=== PATIENT | male | born 1965 | race Caucasian/White ===

== ENCOUNTER 2017-07-27 00:35 | Emergency (ER) | payer OTHER ==
[~2017-07-27] VITALS: Ht 172.7 cm; Wt 83.9 kg
--- NOTE | 2017-07-27 00:40 | NUR ---
BALTAZAR NESS AT BEDSIDE FOR MSE.
[2017-07-27] MEDS ORDERED: IV NORMAL SALINE 1000 ML BAG IV ONE (00:45)
[2017-07-27] MEDS ORDERED: ACETAMINOPHEN ES 500 MG TABLET PO ONE (00:45)
[2017-07-27] MEDS ORDERED: KETOROLAC TROMETHAMINE 30 MG INJ IVP ONE (00:45)
[2017-07-27] MEDS ORDERED: ASPI-1169 PO (00:57)
--- NOTE | 2017-07-27 01:05 | NUR ---
PT STATES HE HAS BEEN "FEELING SICK" THE PAST 2 DAYS, C/O GENERALIZED BODY ACHES, LACK OF APPETITE, AND POOR FLUID INTAKE. STATES THAT HE HAS FEELING OF PALPITATIONS. PLACED ON MONITOR AND PULSE OX PER ORDER. EKG COMPLETED.
[2017-07-27] MEDS ORDERED: KETOROLAC TROMETHAMINE 30 MG INJ ONE (01:10)
[2017-07-27] MEDS ORDERED: ACETAMINOPHEN ES 500 MG TABLET ONE (01:10)
[2017-07-27 01:20] LABS: CREATININE 1.2 mg/dL (0.6-1.3); POTASSIUM 3.5 mmol/L (3.5-5.1)
[2017-07-27 01:21] LABS: BASOPHILS % (AUTO) 0.1 % (0.0-2.0); EOSINOPHILS % (AUTO) 0.3 % (0.0-7.0); HEMATOCRIT 46.6 % (36.7-47.1); HEMOGLOBIN 16.5 g/dL (12.5-16.3); LYMPHOCYTES # (AUTO) 1.1 K/uL (20.0-40.0); LYMPHOCYTES % (AUTO) 7.7 % (20.5-51.5); MEAN CORPUSCULAR HEMOGLOBIN 30.7 uug (23.8-33.4); MEAN CORPUSCULAR HGB CONC 35 g/dL (32.5-36.3); MEAN CORPUSCULAR VOLUME 86.9 fL (73.0-96.2); MONOCYTES # (AUTO) 0.7 K/uL (2.0-10.0); MONOCYTES % (AUTO) 4.5 % (0.0-11.0); NEUTROPHILS # (AUTO) 12.7 K/uL (1.8-8.9); NEUTROPHILS % (AUTO) 87.4 % (38.5-71.5); PLATELET COUNT (AUTO) 261 K/uL (152-348); RED BLOOD CELL COUNT(AUTO) 5.36 MIL/uL (4.06-5.63); WHITE BLOOD COUNT (AUTO) 14.5 K/uL (3.6-10.2)
[2017-07-27 01:26] LABS: BILIRUBIN,DIRECT 0.1 mg/dL (0.0-0.2); TOTAL PROTEIN, SERUM 7.7 g/dL (6.4-8.2)
--- NOTE | 2017-07-27 01:41 | NUR ---
XRAY AT PT BEDSIDE.
--- NOTE | 2017-07-27 02:12 | NUR ---
Patient discharged to home in stable conditon. Written and verbal after care instructions given. Patient verbalizes understanding of instructions. IV removed w/ catheter intact, no bleeding noted at site. Pt ambulated from ER w/ steady gait. Pt took all personal belongings.
[2017-07-27 02:15] VITALS: BP 124/76
== END 2017-07-27 02:16 | disposition home or self-care (01) ==
LOC: ER 00:35
DX: J11.1 Influenza due to unidentified influenza virus with other respiratory manifestations (principal); Z79.82 Long term (current) use of aspirin; Z88.5 Allergy status to narcotic agent
CPT/HCPCS: 36415; 70030-TC; 71045; 85025; 87400; 93005; A4663; A9150; J1885; J7030

== ENCOUNTER 2018-11-24 23:33 | Inpatient (IN) | payer OTHER ==
[~2018-11-24] VITALS: Ht 172.7 cm; Wt 74.9 kg
[~2018-11-24 23:33] MED LIST: ASPI-1169 PO; ATOR20TA PO; METF-440 PO
[2018-11-25] MEDS ORDERED: IV NORMAL SALINE 1000 ML BAG IV ONE (00:45)
[2018-11-25] MEDS ORDERED: DILTIAZEM HCL 25 MG IV IV ONE (00:45)
[2018-11-25 00:55] LABS: BASOPHILS # (AUTO) 0.1 K/uL (0.0-8.0); BASOPHILS % (AUTO) 0.9 % (0.0-2.0); EOSINOPHILS # (AUTO) 0.2 K/uL (0.0-0.7); HEMOGLOBIN 14.6 g/dL (12.5-16.3); LYMPHOCYTES # (AUTO) 4.4 K/uL (20.0-40.0); MEAN CORPUSCULAR HGB CONC 35 g/dL (32.5-36.3); MEAN CORPUSCULAR VOLUME 86.6 fL (73.0-96.2); MONOCYTES # (AUTO) 0.8 K/uL (2.0-10.0); MONOCYTES % (AUTO) 7.2 % (0.0-11.0); NEUTROPHILS # (AUTO) 5.9 K/uL (1.8-8.9); NEUTROPHILS % (AUTO) 51.9 % (38.5-71.5); PLATELET COUNT (AUTO) 246 K/uL (152-348); RED BLOOD CELL COUNT(AUTO) 4.85 MIL/uL (4.06-5.63); WHITE BLOOD COUNT (AUTO) 11.5 K/uL (3.6-10.2)
[2018-11-25] MEDS ORDERED: DILTIAZEM HCL 25 MG IV ONE (00:58)
[2018-11-25 01:04] LABS: CREATININE 1.1 mg/dL (0.6-1.3); POTASSIUM 3.4 mmol/L (3.5-5.1)
[2018-11-25] MEDS ORDERED: AMIODARONE HCL IV 150 MG in IV DEXTROSE 5% 100 ML IV ONE (01:15)
[2018-11-25 01:16] LABS: BILIRUBIN,DIRECT 0.1 mg/dL (0.0-0.2); BILIRUBIN,TOTAL 0.5 mg/dL (0.2-1.0); TOTAL PROTEIN, SERUM 7.1 g/dL (6.4-8.2)
[2018-11-25] MEDS ORDERED: AMIODARONE HCL 150 MG/3 ML VIAL IV ONE (01:19)
[2018-11-25] MEDS ORDERED: HYDROCODONE/APAP 5-325MG TABLET PO PRN ×2 (02:15→10:00)
[2018-11-25] MEDS ORDERED: ONDANSETRON 4 MG/2 ML VIAL IV PRN (02:15)
[2018-11-25] MEDS ORDERED: Z GUARD REMEDY PASTE 57 GM TUBE TOP PRN (02:15)
[2018-11-25] MEDS ORDERED: MAGNESIUM HYDROXIDE 30 ML LIQUID UDC PO PRN (02:15)
[2018-11-25] MEDS ORDERED: POTASSIUM CHLORIDE 20 MEQ TAB.PRT.SR PO ONE (02:15)
[2018-11-25] MEDS ORDERED: ACETAMINOPHEN 325 MG TABLET PO PRN (02:15)
--- NOTE | 2018-11-25 02:41 | NUR ---
Pt. admitted to TELE , under care of Dr. CARL Belongs List completed.
--- NOTE | 2018-11-25 02:45 | NUR ---
RECEIVED PATIENT FROM ER, ALERT AND ORIENTED X4, NO COMPLAINTS OF PAIN. BP/TEMP/O2 SAT WNL WITH HR SLIGHTLY ELEVATED AT 100. ALL PERTINENT ASSESSMENTS COMPLETED. ALL SAFETY AND FALL PRECAUTION MEASURES IN PLACE. NO COMPLAINTS OF PAIN OR DISCOMFORT AT THIS TIME. CALL LIGHT AND PERSONAL BELONGINGS WITHIN REACH AT ALL TIMES. WILL CONTINUE TO MONITOR.
[2018-11-25 03:11] VITALS: BP 101/68
[2018-11-25] MEDS ORDERED: ENOXAPARIN SODIUM 80 MG/0.8 ML DISP.SYRIN SQ ONE (03:15)
[2018-11-25 04:00] VITALS: BP 105/68
[2018-11-25] MEDS ORDERED: POTASSIUM CHLORIDE 20 MEQ TAB.PRT.SR ONE (04:44)
[2018-11-25] MEDS ORDERED: INSULIN REGULAR, HUMAN 300 UNIT/3 ML VIAL SQ PRN (05:00)
[2018-11-25] MEDS ORDERED: DEXTROSE 50% 50 ML DISP.SYRIN IV PRN (05:00)
[2018-11-25] MEDS: BLOOD SUGAR DIAGNOSTIC 1 EACH STRIP VI SCH ×2 (05:05→11:34)
[2018-11-25 06:57] LABS: MAGNESIUM 1.6 mg/dL (1.8-2.4); PHOSPHOROUS 4.1 mg/dL (2.5-4.9)
--- NOTE | 2018-11-25 07:01 | NUR ---
PATIENT ASLEEP AND RESTING COMFORTABLY IN BED. NO SIGNS OR SYMPTOMS OF ACUTE DISTRESS OR DISCOMFORT NOTED OR OBSERVED. VS ARE WNL AND PATIENT IS STABLE. ALL SAFETY AND FALL PRECAUTION MEASURES REMAIN IN PLACE. CALL LIGHT AND PERSONAL ITEMS ARE WITHIN REACH AT ALL TIMES.
[2018-11-25 07:04] LABS: THYROID STIMULATING HORMONE 4.431 mIU/mL (0.358-3.740)
--- NOTE | 2018-11-25 07:30 | NUR ---
PATIENT REFUSED INSULIN PER SQ. ACCU CHECK REVEALED 143MG/DL WITH SLIDING SCALE AND REQUIRED INSULIN 2UNITS SQ. PATIENT VERBALIZED " I HAVE BEEN DM TYPE2 FOR A WHILE AND I HAVE MANAGED WITH 250 METFORMIN EVER SINCE. I REFUSE TO TAKE INSULIN." NOTIFIED HOSPITALIST TODAY. Addendum: 11/25/18 at 1202 by BINDU VINCENT RN 500MG METFORMIN
[2018-11-25] MEDS: MAGNESIUM SULFATE/D5W 100 ML IV SCH ×2 (07:50→08:45)
[2018-11-25] MEDS ORDERED: DILTIAZEM HCL CD 180 MG CAP.SR.24H PO SCH ×2 (07:58→09:00)
[2018-11-25] MEDS ORDERED: METFORMIN HCL 500 MG TABLET PO SCH (08:00)
--- NOTE | 2018-11-25 08:00 | NUR ---
AWAKE ALERT AN ORIENTED X3 DENIES PAIN OR SOB REMAINS AFIB ON MONITOR 100-115. CLOSELY MONITORED
[2018-11-25] MEDS ORDERED: AMIODARONE HCL 200 MG TABLET PO SCH (09:00)
[2018-11-25 11:08] VITALS: BP 107/74
[2018-11-25] MEDS ORDERED: DILT180C66 PO (11:40)
[2018-11-25] MEDS ORDERED: ENOXAPARIN SODIUM 80 MG/0.8 ML DISP.SYRIN SQ SCH ×2 (12:00→21:00)
--- NOTE | 2018-11-25 12:00 | NUR ---
RECEIVED CALL FROM HOSPITALIST AND ACKNOWLEDGED PATIENT'S REFUSAL TO TAKE INSULIN PER SLIDING SCALE. HOSPITALIST AWARE OF LAST ACCU CHECK WAS 202MG/DL PRIOR TO LUNCH, WITH HEART RATE RANGE OF 115-95BPM WITHIN THE LAST HOUR. PATIENT DENIES ANY NEW SYMPTOMS, COMFORTABLE AND NOT IN DISTRESS. HOSPITALIST ALSO REPORTS PATIENT IS RECOMMENDED FOR DISCHARGE THIS AFTERNOON.
--- NOTE | 2018-11-25 14:00 | NUR ---
discharged home stable with family. with follow-up instruction with PCP
[2018-11-25] MEDS ORDERED: ATORVASTATIN 20 MG TABLET PO SCH (21:00)
== END 2018-11-25 14:00 | disposition home or self-care (01) | DRG 310 ==
LOC: ER 23:35 → TELE3 11-25 02:00
PROVIDERS: ADMIT Family Medicine
PROC: 3E033RZ Introduction of Antiarrhythmic into Peripheral Vein, Percutaneous Approach (ICD-10-PCS; principal; 2018-11-25)
DX: I48.91 Unspecified atrial fibrillation (principal); E83.42 Hypomagnesemia; E78.5 Hyperlipidemia, unspecified; E11.9 Type 2 diabetes mellitus without complications; I10 Essential (primary) hypertension; D72.829 Elevated white blood cell count, unspecified; Z79.84 Long term (current) use of oral hypoglycemic drugs; Z79.82 Long term (current) use of aspirin; Z79.899 Other long term (current) drug therapy
CPT/HCPCS: 36415; 70030-TC; 71045; 83735; 84100; 84443; 85025; 85730; 93005; A4663; G0378; J0282; J1650; J1815; J3475; J3490; J7030; J7050; J7060